=== PATIENT | female | born 1975 | race Caucasian/White ===

== ENCOUNTER 2021-07-24 07:31 | Emergency (ER) | payer MEDICAID, MEDICARE ==
[~2021-07-24] VITALS: Ht 180.3 cm; Wt 91.0 kg
[2021-07-24] MEDS ORDERED: TOPUD PO (07:56)
[2021-07-24] MEDS ORDERED: CLIN300C12 PO (07:56)
[2021-07-24] MEDS ORDERED: ACETAMINOPHEN 325MG TABLET PO ONE (08:00)
[2021-07-24 08:07] VITALS: BP 140/65
[2021-07-24] MEDS ORDERED: LIDO454G TP (11:13)
== END 2021-07-24 08:08 | disposition home or self-care (01) ==
LOC: ER 07:31
DX: L03.116 Cellulitis of left lower limb (principal); F20.9 Schizophrenia, unspecified; Z88.2 Allergy status to sulfonamides
CPT/HCPCS: 99283

== ENCOUNTER 2021-07-24 10:06 | Emergency (ER) | payer MEDICAID, MEDICARE ==
[~2021-07-24] VITALS: Ht 182.9 cm; Wt 82.0 kg
[~2021-07-24 10:06] MED LIST: CLIN300C12 PO; TOPUD PO
[2021-07-24] MEDS ORDERED: LIDO454G TP (11:13)
[2021-07-24 11:37] VITALS: BP 140/67
== END 2021-07-24 11:38 | disposition home or self-care (01) ==
LOC: ER 10:06
DX: L55.9 Sunburn, unspecified (principal); F20.9 Schizophrenia, unspecified; Z88.2 Allergy status to sulfonamides; Z90.49 Acquired absence of other specified parts of digestive tract
CPT/HCPCS: 99283; Z7610